=== PATIENT | female | born 1970 | race Caucasian/White ===

== ENCOUNTER 2017-12-01 13:58 | Emergency (ER) | payer MEDICAID ==
[~2017-12-01] VITALS: Ht 167.6 cm; Wt 100.8 kg
[2017-12-01 15:30] LABS: MEAN CORPUSCULAR HGB CONC 34.5 g/dL (32.4-35.8); MEAN CORPUSCULAR VOLUME 86.9 fL (80-100); MEAN PLATELET VOLUME 6.9 fL (7.4-10.4); PLATELET COUNT 394 x10^3/uL (130-400); RED BLOOD COUNT 5.41 x10^6/uL (3.82-5.3)
[2017-12-01 15:38] LABS: ALANINE AMINOTRANSFERASE 25 U/L (12-78); ALBUMIN 3.5 g/dL (3.4-5.0); ANION GAP 10 mmol/L (5-15); CALCIUM 9.8 mg/dL (8.5-10.1); CHLORIDE 100 mmol/L (98-107); CREATININE 0.87 mg/dL (0.55-1.02)
[2017-12-01 15:40] LABS: ALKALINE PHOSPHATASE 92 U/L (45-117); BILIRUBIN,TOTAL 0.3 mg/dL (0.2-1.0); TOTAL PROTEIN 8.1 g/dL (6.4-8.2)
[2017-12-01 15:55] LABS: BASOPHILS # (AUTO) 0.17 x10^3/uL (0-0.1); BASOPHILS % (AUTO) 1 % (0-1); EOSINOPHILS # (AUTO) 3.96 x10^3/uL (0-0.4); EOSINOPHILS % (AUTO) 24 % (1-7); LYMPHOCYTES # (AUTO) 3.17 x10^3/uL (1-3.4); LYMPHOCYTES % (AUTO) 19 % (22-44); MD SCAN; MONOCYTES # (AUTO) 1.24 x10^3/uL (0.2-0.8); MONOCYTES % (AUTO) 7 % (2-9); NEUTROPHILS # (AUTO) 8.18 x10^3/uL (1.8-6.8); NEUTROPHILS % (AUTO) 49 % (42-75)
[2017-12-01 15:59] LABS: MICROSCOPIC INDICATED
[2017-12-01] MEDS ORDERED: SODIUM CHLORIDE FLUSH 10ML SYR IVF ONE (16:00)
[2017-12-01] MEDS ORDERED: ONDANSETRON ODT 4 MG PO ONE (16:00)
[2017-12-01 16:02] LABS: CULTURE INDICATED? YES
[2017-12-01] MEDS ORDERED: ONDANSETRON ODT 4 MG ONE (16:07)
[2017-12-01] MEDS ORDERED: HYDROmorphone 2 MG/ML, 1ML ONE ×2 (16:11→17:55)
[2017-12-01] MEDS: HYDROmorphone 1 MG/ML, 1ML IVPush PRN ×2 (16:12→18:00)
[2017-12-01 17:53] VITALS: BP 150/97
[2017-12-01] MEDS ORDERED: OMNIPAQUE 350 MG/ML, 100ML BOTTLE ONE (18:00)
== END 2017-12-01 19:55 | disposition home or self-care (01) ==
LOC: ED 18:33
DX: R10.11 Right upper quadrant pain (principal); D72.829 Elevated white blood cell count, unspecified; E11.9 Type 2 diabetes mellitus without complications
CPT/HCPCS: 36415; 74021; 74177; 76700; 80053; 81001; 83690; 85025; 87086; 96374; 96376; 99285; J1170; Q0162; Q9967